=== PATIENT | male | born 1935 | race Caucasian/White ===

== ENCOUNTER → 2016-11-30 | Outpatient (CLI) | payer MEDICARE ==
[2016-11-30 09:23] LABS: HEMATOCRIT 38.6 % (39.0-51.0); MEAN CELL VOLUME 95.8 FL (80.0-100.0); MEAN CORPUSCULAR HEMOGLOBIN 31.4 PG (27.0-34.0); MEAN CORPUSCULAR HGB CONC 32.8 % (32.0-36.0); PLATELET COUNT 169 TH/MM3 (150-450); RED BLOOD COUNT 4.03 MIL/MM3 (4.50-5.90); RED CELL DISTRIBUTION WIDTH 13.1 % (11.6-17.2); REVIEW FLAG FINAL; WHITE BLOOD COUNT 6.5 TH/MM3 (4.0-11.0)
[2016-11-30 10:17] LABS: ALKALINE PHOSPHATASE 93 U/L (45-117); ALT (GPT) 20 U/L (12-78); ANION GAP 6 MEQ/L (5-15); AST (GOT) 19 U/L (15-37); BICARBONATE 30.1 MEQ/L (21.0-32.0); BLOOD UREA NITROGEN 20 MG/DL (7-18); CHLORIDE 107 MEQ/L (98-107); GLOMERULAR FILTRATION RATE 51 ML/MIN (>89); GLUCOSE,FASTING 101 MG/DL (74-99); POTASSIUM 4.5 MEQ/L (3.5-5.1); SODIUM (NA) 143 MEQ/L (136-145); TOTAL BILIRUBIN ADULT 0.7 MG/DL (0.2-1.0); TRANSFERRIN IRON PROFILE 256 MG/DL (200-360)
== END ==
LOC: PLAB 07:45
PROVIDERS: ATTEND Internal Medicine
DX: D64.9 Anemia, unspecified (principal); I10 Essential (primary) hypertension
CPT/HCPCS: 36415; 80053; 82607; 83540; 83550; 85027

== ENCOUNTER → 2017-05-27 | Outpatient (CLI) | payer MEDICARE ==
[2017-05-27 09:27] LABS: MEAN CELL VOLUME 96.3 FL (80.0-100.0); MEAN CORPUSCULAR HEMOGLOBIN 32.6 PG (27.0-34.0); MEAN CORPUSCULAR HGB CONC 33.9 % (32.0-36.0); PLATELET COUNT 160 TH/MM3 (150-450); RED BLOOD COUNT 3.95 MIL/MM3 (4.50-5.90); RED CELL DISTRIBUTION WIDTH 13.3 % (11.6-17.2); REVIEW FLAG FINAL; WHITE BLOOD COUNT 5.9 TH/MM3 (4.0-11.0)
[2017-05-27 09:51] LABS: ANION GAP 6 MEQ/L (5-15); AST (GOT) 22 U/L (15-37); BICARBONATE 29.3 MEQ/L (21.0-32.0); BLOOD UREA NITROGEN 24 MG/DL (7-18); CHLORIDE 105 MEQ/L (98-107); GLOMERULAR FILTRATION RATE 49 ML/MIN (>89); GLUCOSE,FASTING 96 MG/DL (74-99); POTASSIUM 4.4 MEQ/L (3.5-5.1); SODIUM (NA) 140 MEQ/L (136-145)
[2017-05-27 10:05] LABS: ALKALINE PHOSPHATASE 97 U/L (45-117); ALT (GPT) 24 U/L (12-78); HDL CHOLESTEROL 47.5 MG/DL (40.0-60.0); LDL CHOLESTEROL 70 MG/DL (0-99); LDL CHOLESTEROL DIRECT 82 MG/DL (0-99); TOTAL BILIRUBIN ADULT 0.6 MG/DL (0.2-1.0)
== END ==
LOC: PLAB 07:54
PROVIDERS: ATTEND Internal Medicine
DX: I10 Essential (primary) hypertension (principal); E78.5 Hyperlipidemia, unspecified
CPT/HCPCS: 36415; 80053; 80061; 83721; 85027

== ENCOUNTER → 2017-11-29 | Outpatient (CLI) | payer MEDICARE ==
[2017-11-29 10:26] LABS: HEMATOCRIT 38.6 % (39.0-51.0); MEAN CORPUSCULAR HEMOGLOBIN 32.3 PG (27.0-34.0); MEAN CORPUSCULAR HGB CONC 33.6 % (32.0-36.0); MEAN PLATELET VOLUME 9.2 FL (7.0-11.0); PLATELET COUNT 182 TH/MM3 (150-450); RED BLOOD COUNT 4.02 MIL/MM3 (4.50-5.90); RED CELL DISTRIBUTION WIDTH 13.1 % (11.6-17.2); WHITE BLOOD COUNT 6.1 TH/MM3 (4.0-11.0)
[2017-11-29 10:28] LABS: ALBUMIN 3.7 GM/DL (3.4-5.0); ALT (GPT) 25 U/L (12-78); AST (GOT) 28 U/L (15-37); BICARBONATE 26.2 MEQ/L (21.0-32.0); BLOOD UREA NITROGEN 23 MG/DL (7-18); CALCIUM 8.8 MG/DL (8.5-10.1); CHLORIDE 111 MEQ/L (98-107); CREATININE 1.28 MG/DL (0.60-1.30); GLOMERULAR FILTRATION RATE 54 ML/MIN (>89); GLUCOSE,FASTING 97 MG/DL (74-99); SODIUM (NA) 141 MEQ/L (136-145)
[2017-11-29 10:29] LABS: CHOLESTEROL 135 MG/DL (120-200); IRON (FE) 149 MCG/DL (65-175)
[2017-11-29 10:38] LABS: % SATURATION IRON PROFILE 46.9 % (20-50); ALKALINE PHOSPHATASE 93 U/L (45-117); CHOLESTEROL/ HDL RATIO 2.91 RATIO; HDL CHOLESTEROL 46.3 MG/DL (40.0-60.0); LDL CHOLESTEROL 77 MG/DL (0-99); LDL CHOLESTEROL DIRECT 92 MG/DL (0-99); TOTAL BILIRUBIN ADULT 0.9 MG/DL (0.2-1.0); TOTAL IRON BINDING CAPACITY 318 MCG/DL (250-450); TOTAL PROTEIN 7.2 GM/DL (6.4-8.2); TRIGLYCERIDES 60 MG/DL (42-150)
== END ==
LOC: PLAB 07:24
PROVIDERS: ATTEND Internal Medicine
DX: I25.10 Atherosclerotic heart disease of native coronary artery without angina pectoris (principal); D64.9 Anemia, unspecified
CPT/HCPCS: 36415; 80053; 80061; 83540; 83550; 83721; 85027

== ENCOUNTER 2018-03-23 10:10 | Observation (INO) ==
[2018-03-23] MEDS ORDERED: Metoprolol Inj 5 MG/5 ML Vial IV.PUSH STA ×2 (10:27→13:06)
--- NOTE | 2018-03-23 10:44 | XR ---
EXAM DATE: 03/23/2018 10:41 AM EDT AGE/SEX: 82 years / Male INDICATIONS: Rapid heart rate & chest pressure. CLINICAL DATA: This is the patient's initial encounter. Patient reports that signs and symptoms have been present for 1 day and indicates a pain score of 7/10. MEDICAL/SURGICAL HISTORY: Hypertension. Hypercholesterolemia. CAD. CABG. COMPARISON: No prior exams available for comparison. FINDINGS: A single AP view of the chest demonstrates the lungs to be symmetrically aerated without evidence of mass, infiltrate or effusion. The cardiomediastinal contours are unremarkable. There is evidence of previous cardiothoracic surgery. Osseous structures are intact. There are some old healed right-side d rib fractures. CONCLUSION: No acute intrathoracic disease. Electronically signed by: Cosmo Mosher MD 03/23/2018 10:42 AM EDT
[2018-03-23 10:52] LABS: Bilirubin,Urine Negative (Negative); Clarity,Urine Clear (Clear); Glucose,Urine (UA) Negative (Negative); Leukocyte Esterase,Urine Negative (Negative); Nitrite,Urine Negative (Negative); Specific Gravity,Urine Less/Equal 1.005 (1.002-1.035); Urobilinogen,Urine 0.2 mg/dL (Less than 2)
[2018-03-23 10:57] LABS: Baso # (Auto) 0.1 th/mm3 (0.0-0.2); Baso % (Auto) 0.8 % (0.0-2.0); Eos # (Auto) 0.2 th/mm3 (0.0-0.4); Eos % (Auto) 2.3 % (0.0-4.0); Hematocrit 39.5 % (39.0-51.0); Hemoglobin 13.3 gm/dL (13.0-17.0); Lymph # (Auto) 1.3 th/mm3 (1.0-4.8); Lymph % (Auto) 19.1 % (9.0-44.0); Mean Corpuscular HGB Conc 33.7 % (32.0-36.0); Mean Corpuscular Hemoglobin 33.1 pg (27.0-34.0); Mean Corpuscular Volume 98.1 fL (80.0-100.0); Mean Platelet Volume 8.4 fL (7.0-11.0); Mono # (Auto) 0.6 th/mm3 (0.0-0.9); Mono % (Auto) 8.5 % (0.0-8.0); Neut # (Auto) 4.5 th/mm3 (1.8-7.7); Neut % (Auto) 69.3 % (16.0-70.0); Platelet Count 181 th/mm3 (150-450); Red Blood Count 4.03 mil/mm3 (4.50-5.90); Red Cell Distribution Width 12.7 % (11.6-17.2); White Blood Count 6.7 th/mm3 (4.0-11.0)
[2018-03-23 11:01] LABS: Chloride 108 meq/L (98-107); Potassium 4.1 meq/L (3.5-5.1); Sodium 144 meq/L (136-145)
[2018-03-23 11:04] LABS: Color,Urine Straw (Yellw/Straw)
[2018-03-23 11:06] LABS: Albumin 3.4 g/dL (3.4-5.0); Lipase 97 U/L (73-393)
[2018-03-23 11:07] LABS: Anion Gap 9 meq/L (5-15); Blood Urea Nitrogen 23 mg/dL (7-18); Carbon Dioxide 26.6 meq/L (21.0-32.0); Glucose,Random 137 mg/dL (74-106); Magnesium 1.8 mg/dL (1.5-2.5)
[2018-03-23 11:08] LABS: Activated Partial Thrombo Time 25.7 sec (24.3-30.1); INR 1.1 Ratio; Prothrombin Time 10.8 sec (9.8-11.6)
[2018-03-23 11:09] LABS: Alanine Aminotransferase 25 U/L (12-78); Aspartate Aminotransferase 24 U/L (15-37); Glomerular Filtration Rate 53 mL/min (>89)
[2018-03-23 11:11] LABS: Total Protein 7.2 g/dL (6.4-8.2)
[2018-03-23 11:12] LABS: Alkaline Phosphatase 104 U/L (45-117)
[2018-03-23 11:15] LABS: Creatine Kinase 78 U/L (39-308); D-Dimer 1.38 mg/L FEU (0.00-0.50)
--- NOTE | 2018-03-23 12:16 | ED ---
HPI General Chief complaint: Arrhythmia/Palpitations Stated complaint: High Heart Rate Time Seen by Provider: 03/23/18 10:22 History of Present Illness HPI narrative: 82-year-old male history of hypertension, dyslipidemia, VANESSA here for evaluation of palpitations. Patient says he was eating his coburn egg and cheese sandwich this morning, went to the yard and he started feeling palpitations. He has no chest pain to do some work or shortness of breath or cough or sweating, denies any neurological symptoms or slurred speech or weakness or sensory loss. He does not have any history of A. fib never had these symptoms before. Related Data Home Medications Medication Instructions Recorded Confirmed amlodipine 2.5 mg PO DAILY 03/23/18 03/23/18 ascorbic acid (vitamin C) [Vitamin 2 g PO DAILY 03/23/18 03/23/18 C] aspirin 1 tab PO HS 03/23/18 03/23/18 atorvastatin [Lipitor] 40 mg PO HS 03/23/18 03/23/18 cholecalciferol (vitamin D3) 2,000 unit PO DAILY 03/23/18 03/23/18 [Vitamin D3] diphenhydramine HCl 25 mg PO HS PRN 03/23/18 03/23/18 glucosamine sulfate [Glucosamine] 1,500 mg PO DAILY 03/23/18 03/23/18 lisinopril 1 tab PO DAILY 03/23/18 03/23/18 multivitamin 1 tab PO DAILY 03/23/18 03/23/18 Allergies Allergy/AdvReac Type Severity Reaction Status Date / Time morphine AdvReac Gastrointestinal Verified 03/23/18 10:21 Upset Review of Systems Except as stated in HPI: all other systems reviewed are negative [facility] Family History Family History Other Brain aneurysm Social History Social History Substance History: No History of Abuse Second Hand Smoke Exposure: Yes Smoking Status: Never smoker How Often Do You Have a Drink Containing Alcohol: Never Recent Out of Country Travel within the Last 8 Weeks: No Immunization History Tetanus Immunization: Unsure Hx Influenza Vaccine This Season: No Exam Narrative Exam Narrative: GENERAL: Alert oriented 3 no acute distress. SKIN: Focused skin assessment warm/dry. HEAD: Atraumatic. Normocephalic. EYES: Pupils equal and round. No scleral icterus. No injection or drainage. ENT: No nasal bleeding or discharge. Mucous membranes pink and moist. NECK: Trachea midline. No JVD. CARDIOVASCULAR: Regular rate and rhythm. No murmur appreciated. RESPIRATORY: No accessory muscle use. Clear to auscultation. Breath sounds equal bilaterally. GASTROINTESTINAL: Abdomen soft, non-tender, nondistended. Hepatic and splenic margins not palpable. MUSCULOSKELETAL: No obvious deformities. No clubbing. No cyanosis. No edema. NEUROLOGICAL: Awake and alert. No obvious cranial nerve deficits. Motor grossly within normal limits. Normal speech. PSYCHIATRIC: Appropriate mood and affect; insight and judgment normal. Course Initial Documented Vital Signs Temperature 98 F 03/23/18 10:35 Pulse Rate 140 H 03/23/18 10:35 Respiratory Rate 18 03/23/18 10:35 Blood Pressure 180/108 H 03/23/18 10:35 Pulse Oximetry 95 03/23/18 10:35 Last Documented Vital Signs Temperature 98 F 03/23/18 10:35 Pulse Rate 53 L 03/23/18 13:16 Respiratory Rate 20 03/23/18 12:47 Blood Pressure 157/78 H 03/23/18 13:16 Pulse Oximetry 97 03/23/18 13:16 Medical Decision Making Lab Data Result diagrams: 03/23/18 10:20 03/23/18 10:20 Lab Results 03/23/18 03/23/18 03/23/18 Range/Units 10:20 10:20 10:20 CBC w Diff WBC (4.0-11.0) th/mm3 RBC (4.50-5.90) mil/mm3 Hgb (13.0-17.0) gm/dL Hct (39.0-51.0) % MCV (80.0-100.0) fL MCH (27.0-34.0) pg MCHC (32.0-36.0) % RDW (11.6-17.2) % Plt Count (150-450) th/mm3 MPV (7.0-11.0) fL Neut % (Auto) (16.0-70.0) % Lymph % (Auto) (9.0-44.0) % Archer % (Auto) (0.0-8.0) % Eos % (Auto) (0.0-4.0) % Baso % (Auto) (0.0-2.0) % Neut # (Auto) (1.8-7.7) th/mm3 Lymph # (Auto) (1.0-4.8) th/mm3 Archer # (Auto) (0.0-0.9) th/mm3 Eos # (Auto) (0.0-0.4) th/mm3 Baso # (Auto) (0.0-0.2) th/mm3 WBC Differential Differential Comment PT 10.8 (9.8-11.6) sec INR 1.1 Ratio APTT 25.7 (24.3-30.1) sec D-Dimer Quant (PE/DVT) 1.38 H (0.00-0.50) mg/L FEU Sodium (136-145) meq/L Potassium (3.5-5.1) meq/L Chloride (98-107) meq/L Carbon Dioxide (21.0-32.0) meq/L Anion Gap (5-15) meq/L BUN (7-18) mg/dL Creatinine (0.60-1.30) mg/dL Estimated GFR (>89) mL/min Random Glucose (74-106) mg/dL Calcium (8.5-10.1) mg/dL Magnesium (1.5-2.5) mg/dL Total Bilirubin (0.2-1.0) mg/dL AST (15-37) U/L ALT (12-78) U/L Alkaline Phosphatase (45-117) U/L Total Creatine Kinase (39-308) U/L Troponin I (0.02-0.05) ng/mL B-Natriuretic Peptide 146 H (0-100) pg/mL Total Protein (6.4-8.2) g/dL Albumin (3.4-5.0) g/dL Lipase Cancelled Ur Collection Type Urine Color (Yellw/Straw) Urine Clarity (Clear) Urine pH (5.0-8.5) Ur Specific [place] (1.002-1.035) Urine Protein (Neg-Trace) mg/dL Urine Glucose (UA) (Negative) mg/dL Urine Ketones (Negative) mg/dL Urine Occult Blood (Negative) Urine Nitrate (Negative) Urine Bilirubin (Negative) Urine Urobilinogen (Less than 2) mg/dL Ur Leukocyte Esterase (Negative) Micro UA Comment Urine Culture Comments 08/02/18 08/02/18 08/02/18 Range/Units 10:20 10:20 10:20 CBC w Diff Auto diff final WBC 6.7 (4.0-11.0) th/mm3 RBC 4.03 L (4.50-5.90) mil/mm3 Hgb 13.3 (13.0-17.0) gm/dL Hct 39.5 (39.0-51.0) % MCV 98.1 (80.0-100.0) fL MCH 33.1 (27.0-34.0) pg MCHC 33.7 (32.0-36.0) % RDW 12.7 (11.6-17.2) % Plt Count 181 (150-450) th/mm3 MPV 8.4 (7.0-11.0) fL Neut % (Auto) 69.3 (16.0-70.0) % Lymph % (Auto) 19.1 (9.0-44.0) % Archer % (Auto) 8.5 H (0.0-8.0) % Eos % (Auto) 2.3 (0.0-4.0) % Baso % (Auto) 0.8 (0.0-2.0) % Neut # (Auto) 4.5 (1.8-7.7) th/mm3 Lymph # (Auto) 1.3 (1.0-4.8) th/mm3 Archer # (Auto) 0.6 (0.0-0.9) th/mm3 Eos # (Auto) 0.2 (0.0-0.4) th/mm3 Baso # (Auto) 0.1 (0.0-0.2) th/mm3 WBC Differential . Differential Comment . PT Cancelled (9.8-11.6) sec INR Cancelled Ratio APTT Cancelled (24.3-30.1) sec D-Dimer Quant (PE/DVT) (0.00-0.50) mg/L FEU Sodium 144 (136-145) meq/L Potassium 4.1 (3.5-5.1) meq/L Chloride 108 H (98-107) meq/L Carbon Dioxide 26.6 (21.0-32.0) meq/L Anion Gap 9 (5-15) meq/L BUN 23 H (7-18) mg/dL Creatinine 1.30 (0.60-1.30) mg/dL Estimated GFR 53 L (>89) mL/min Random Glucose 137 H (74-106) mg/dL Calcium 9.0 (8.5-10.1) mg/dL Magnesium 1.8 (1.5-2.5) mg/dL Total Bilirubin 0.7 (0.2-1.0) mg/dL AST 24 (15-37) U/L ALT 25 (12-78) U/L Alkaline Phosphatase 104 (45-117) U/L Total Creatine Kinase 78 (39-308) U/L Troponin I Less than 0.02 L (0.02-0.05) ng/mL B-Natriuretic Peptide (0-100) pg/mL Total Protein 7.2 (6.4-8.2) g/dL Albumin 3.4 (3.4-5.0) g/dL Lipase 97 Ur Collection Type Urine Color (Yellw/Straw) Urine Clarity (Clear) Urine pH (5.0-8.5) Ur Specific [place] (1.002-1.035) Urine Protein (Neg-Trace) mg/dL Urine Glucose (UA) (Negative) mg/dL Urine Ketones (Negative) mg/dL Urine Occult Blood (Negative) Urine Nitrate (Negative) Urine Bilirubin (Negative) Urine Urobilinogen (Less than 2) mg/dL Ur Leukocyte Esterase (Negative) Micro UA Comment Urine Culture Comments 03/23/18 Range/Units 10:30 CBC w Diff WBC (4.0-11.0) th/mm3 RBC (4.50-5.90) mil/mm3 Hgb (13.0-17.0) gm/dL Hct (39.0-51.0) % MCV (80.0-100.0) fL MCH (27.0-34.0) pg MCHC (32.0-36.0) % RDW (11.6-17.2) % Plt Count (150-450) th/mm3 MPV (7.0-11.0) fL Neut % (Auto) (16.0-70.0) % Lymph % (Auto) (9.0-44.0) % Archer % (Auto) (0.0-8.0) % Eos % (Auto) (0.0-4.0) % Baso % (Auto) (0.0-2.0) % Neut # (Auto) (1.8-7.7) th/mm3 Lymph # (Auto) (1.0-4.8) th/mm3 Archer # (Auto) (0.0-0.9) th/mm3 Eos # (Auto) (0.0-0.4) th/mm3 Baso # (Auto) (0.0-0.2) th/mm3 WBC Differential Differential Comment PT (9.8-11.6) sec INR Ratio APTT (24.3-30.1) sec D-Dimer Quant (PE/DVT) (0.00-0.50) mg/L FEU Sodium (136-145) meq/L Potassium (3.5-5.1) meq/L Chloride (98-107) meq/L Carbon Dioxide (21.0-32.0) meq/L Anion Gap (5-15) meq/L BUN (7-18) mg/dL Creatinine (0.60-1.30) mg/dL Estimated GFR (>89) mL/min Random Glucose (74-106) mg/dL Calcium (8.5-10.1) mg/dL Magnesium (1.5-2.5) mg/dL Total Bilirubin (0.2-1.0) mg/dL AST (15-37) U/L ALT (12-78) U/L Alkaline Phosphatase (45-117) U/L Total Creatine Kinase (39-308) U/L Troponin I (0.02-0.05) ng/mL B-Natriuretic Peptide (0-100) pg/mL Total Protein (6.4-8.2) g/dL Albumin (3.4-5.0) g/dL Lipase Ur Collection Type Clean catch Urine Color Straw (Yellw/Straw) Urine Clarity Clear (Clear) Urine pH 7.0 (5.0-8.5) Ur Specific [place] Less/equal 1.005 (1.002-1.035) Urine Protein Negative (Neg-Trace) mg/dL Urine Glucose (UA) Negative (Negative) mg/dL Urine Ketones Negative (Negative) mg/dL Urine Occult Blood Negative (Negative) Urine Nitrate Negative (Negative) Urine Bilirubin Negative (Negative) Urine Urobilinogen 0.2 (Less than 2) mg/dL Ur Leukocyte Esterase Negative (Negative) Micro UA Comment Culture not ind Urine Culture Comments Culture not ind Imaging Data Radiologist's impression: Chest X-Ray 03/23/18 10:28 CONCLUSION: No acute intrathoracic disease. Chest CTA 03/23/18 11:24 CONCLUSION: No evidence of pulmonary embolism. Discharge Plan Discharge Disposition Patient Disposition: 30 Still Patient Discharge Condition Condition: Stable Discharge Details Diagnosis: Afib Physicians Team ED Provider: Loki Rice Primary Care Provider: Arjun Bacon Attending Provider: Taylor Pierre Discharge Interventions Interventions: Vital Signs Last Done: 03/23/18 13:16 Status ED Status: Admitted Observation Patient
--- NOTE | 2018-03-23 12:58 | CT ---
EXAM DATE: 03/23/2018 12:37 PM EDT AGE/SEX: 82 years / Male INDICATIONS: Chest pressure. Elevated heart rate. CLINICAL DATA: This is the patient's initial encounter. Patient reports that signs and symptoms have been present for 1 day and indicates a pain score of 2/10. MEDICAL/SURGICAL HISTORY: Cardiovascular disease. Hypertension. CABG. RADIATION DOSE: 17.69 CTDI (mGy) COMPARISON: No prior exams available for comparison. TECHNIQUE: Volumetric scanning was performed using a multi-row detector CT scanner during bolus infu jomar of 75 ml Omnipaque 350 (iohexol) nonionic water-soluble contrast as a single exam dose. The lacy a was post processed with a variety of visualization algorithms including full volume maximum intensi ty projection and sliding thin slab reformation. Using automated exposure control and adjustment of the mA and/or kV according to patient size, radiation dose was kept as low as reasonably achievable t o obtain optimal diagnostic quality images. DICOM format image data is available electronically for review and comparison. FINDINGS: Examination of the pulmonary vasculature demonstrates good filling of the main, lobar and segmental b ranches. There are no filling defects to suggest pulmonary embolism. Multiplanar reconstructions are also unremarkable. There is minimal atelectasis in both bases with small bulla in the left lower lobe. No pulmonary nodu les are identified. No pleural effusions are identified. Examination of the mediastinum demonstrates no abnormally enlarged lymph nodes by CT criteria. No axi llary or hilar abnormalities are identified. Coronary artery calcifications are present. The visualiz ed upper abdominal structures are unremarkable. CONCLUSION: No evidence of pulmonary embolism. Electronically signed by: Sai Bello MD 03/23/2018 12:57 PM EDT
--- NOTE | 2018-03-23 14:42 | P.HPIM ---
History of Present Illness Primary Care Physician: Arjun Bacon MD Chief Complaint: Palpitation History of Present Illness: Patient is an 82-year-old gentleman with acute onset of palpitations today while at rest. He was doing yard work earlier and sat down and ate his breakfast and then found out that he had some palpitations in his chest. His urged him to come to the hospital as she had recently been discharged from. In arrival here patient is found to have atrial fibrillation on telemetry with a rapid ventricular response and a heart rate in the 140s. He was given Lopressor IV and has since converted back to sinus bradycardia which he says is his normal baseline. 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 Patient at this time takes a baby aspirin a day and is very active with softball weekly. He notes no recent fevers or chills and has not had any recent trauma. Of note the patient plays softball 3 times a week and his team recently won the senior softball championship of the [facility]. Only recent stress he has had is his being in the hospital but she has since come home. Due to the acute nature of his A. fib patient is recommended for further observation on telemetry - Diagnosis (1) Afib (2) CAD (coronary artery disease) Review of Systems All other systems reviewed negative except as stated in HPI PMFSH - History History Provided By: Patient - Medical History Medical History: Medical History (Last Reviewed 03/23/18 @ 14:40 by Taylor Pierre MD) CPAP use counseling Coronary artery disease High cholesterol Hypertension - Surgical History Surgical History: Surgical History (Last Reviewed 03/23/18 @ 14:40 by Taylor Pierre MD) History of bilateral knee replacement History of shoulder surgery Hx of CABG - Family History Family History: Family History (Last Updated 03/23/18 @ 14:40 by Taylor Pierre MD) Other Brain aneurysm - Tobacco History Smoking Status: Never smoker - Alcohol History How Often Do You Have a Drink Containing Alcohol: Never - Substance Use History Substance History: No History of Abuse - Travel History Recent Travel Out of the Country Within the Last 8 Weeks: No - Immunization History Tetanus Immunization: Unsure Hx Influenza Vaccine This Season: No Medications and Allergies Allergies Allergy/AdvReac Type Severity Reaction Status Date / Time morphine AdvReac Gastrointestinal Verified 03/23/18 10:21 Upset Home Medications Medication Instructions Recorded Confirmed Type amlodipine 2.5 mg PO DAILY 03/23/18 03/23/18 History ascorbic acid (vitamin C) [Vitamin 2 g PO DAILY 03/23/18 03/23/18 History C] aspirin 1 tab PO HS 03/23/18 03/23/18 History atorvastatin [Lipitor] 40 mg PO HS 03/23/18 03/23/18 History cholecalciferol (vitamin D3) 2,000 unit PO DAILY 03/23/18 03/23/18 History [Vitamin D3] diphenhydramine HCl 25 mg PO HS PRN 03/23/18 03/23/18 History glucosamine sulfate [Glucosamine] 1,500 mg PO DAILY 03/23/18 03/23/18 History lisinopril 1 tab PO DAILY 03/23/18 03/23/18 History multivitamin 1 tab PO DAILY 03/23/18 03/23/18 History Exam Vital signs: Vital Signs 03/23/18 10:35 03/23/18 10:36 03/23/18 10:49 Temperature 98 F Pulse Rate 140 H Respiratory Rate 18 Blood Pressure 180/108 H 157/99 H 157/79 H Pulse Oximetry 95 03/23/18 11:08 03/23/18 11:39 03/23/18 12:08 Temperature Pulse Rate 99 H 122 H 97 H Respiratory Rate 18 8 L 18 Blood Pressure 105/72 141/77 H 126/82 Pulse Oximetry 95 97 97 03/23/18 12:47 03/23/18 13:16 Temperature Pulse Rate 120 H 53 L Respiratory Rate 20 Blood Pressure 152/100 H 157/78 H Pulse Oximetry 98 97 Intake & Output 03/22/18 03/23/18 03/23/18 18:59 06:59 18:59 Output Total 1100 / 1100 Balance -1100 / -1100 Weight 83 kg Output: Urine 1100 / 1100 Narrative: GENERAL: Well-nourished, well-developed patient. SKIN: Warm and dry. HEAD: Normocephalic. EYES: No scleral icterus. No injection or drainage. NECK: Supple, trachea midline. No JVD or lymphadenopathy. CARDIOVASCULAR: Sinus bradycardia without murmurs, gallops, or rubs. RESPIRATORY: Breath sounds equal bilaterally. No accessory muscle use. GASTROINTESTINAL: Abdomen soft, non-tender, nondistended. MUSCULOSKELETAL: No cyanosis, or edema. BACK: Nontender without obvious deformity. No CVA tenderness. NEUROLOGICAL: Awake and alert. Cranial nerves II through XII intact. Motor and sensory grossly within normal limits. Five out of 5 muscle strength in all muscle groups. Normal speech. Results - Labs CBC & Chem 7: 03/23/18 10:20 03/23/18 10:20 Labs: Short CBC 03/23/18 Range/Units 10:20 WBC 6.7 (4.0-11.0) th/mm3 Hgb 13.3 (13.0-17.0) gm/dL Hct 39.5 (39.0-51.0) % Plt Count 181 (150-450) th/mm3 BMP 03/23/18 10:20 Sodium 144 Potassium 4.1 Chloride 108 H Carbon Dioxide 26.6 BUN 23 H Creatinine 1.30 Calcium 9.0 Cardiac Enzymes 03/23/18 Range/Units 10:20 Total Creatine Kinase 78 (39-308) U/L Troponin I Less than 0.02 L (0.02-0.05) ng/mL Liver Function 03/23/18 Range/Units 10:20 Total Bilirubin 0.7 (0.2-1.0) mg/dL AST 24 (15-37) U/L ALT 25 (12-78) U/L Alkaline Phosphatase 104 (45-117) U/L Albumin 3.4 (3.4-5.0) g/dL Urine 03/23/18 Range/Units 10:30 Urine Color Straw (Yellw/Straw) Urine Clarity Clear (Clear) Urine pH 7.0 (5.0-8.5) Ur Specific [place] Less/equal 1.005 (1.002-1.035) Urine Protein Negative (Neg-Trace) mg/dL Urine Glucose (UA) Negative (Negative) mg/dL - Imaging Impressions Chest X-Ray 03/23/18 10:28 CONCLUSION: No acute intrathoracic disease. Chest CTA 03/23/18 11:24 CONCLUSION: No evidence of pulmonary embolism. Caprini VTE Risk Assessment Caprini VTE Risk Assessment: Moderate/High Risk (score >= 2) Caprini Risk Assessment Model: Point Value = 1 Point Value = 2 Point Value = 3 Point Value = 5 Age 41-60 Minor surgery BMI > 25 kg/m2 Swollen legs Varicose veins or History of unexplained or recurrent spontaneous Oral contraceptives or hormone replacement Sepsis (< 1 month) Serious lung disease, including pneumonia (< 1 month) Abnormal pulmonary function Acute myocardial infarction Congestive heart failure (< 1 month) History of inflammatory bowel disease Medical patient at bed rest Age 61-74 Arthroscopic surgery Major open surgery (> 45 min) Laparoscopic surgery (> 45 min) Malignancy Confined to bed (> 72 hours) Immobilizing plaster cast Central venous access Age >= 75 History of VTE Family history of VTE Factor V Leiden Prothrombin [id number] Lupus anticoagulant Anticardiolipin antibodies Elevated serum homocysteine Heparin-induced thrombocytopenia Other congenital or acquired thrombophilia Stroke (< 1 month) Elective arthroplasty Hip, pelvis, or leg fracture Acute spinal cord injury (< 1 month) Prophylaxis Regimen: Total Risk Factor Score Risk Level Prophylaxis Regimen 0-1 Low Early ambulation 2 Moderate Order ONE of the following: *Sequential Compression Device (SCD) *Heparin 5000 units SQ BID 3-4 Higher Order ONE of the following medications: *Heparin 5000 units SQ TID *Enoxaparin/Lovenox 40 mg SQ daily (WT < 150 kg, CrCl > 30 mL/min) *Enoxaparin/Lovenox 30 mg SQ daily (WT < 150 kg, CrCl > 10-29 mL/min) *Enoxaparin/Lovenox 30 mg SQ BID (WT < 150 kg, CrCl > 30 mL/min) AND/OR *Sequential Compression Device (SCD) 5 or more Highest Order ONE of the following medications: *Heparin 5000 units SQ TID (Preferred with Epidurals) *Enoxaparin/Lovenox 40 mg SQ daily (WT < 150 kg, CrCl > 30 mL/min) *Enoxaparin/Lovenox 30 mg SQ daily (WT < 150 kg, CrCl > 10-29 mL/min) *Enoxaparin/Lovenox 30 mg SQ BID (WT < 150 kg, CrCl > 30 mL/min) AND *Sequential Compression Device (SCD) Assessment and Plan - Assessment (1) Afib Code(s): I48.91 - Unspecified atrial fibrillation Status: Acute Plan: Currently resolved after Lopressor We will continue Lopressor discontinued patient's amlodipine Increase aspirin 325 mg daily and follow-up echocardiogram in a.m. Monitor on telemetry This point patient appears to have converted and will likely not need anticoagulation We will need outpatient referral to cardiology (2) CAD (coronary artery disease) Code(s): I25.10 - Atherosclerotic heart disease of [place] coronary artery without angina pectoris Status: Acute Plan: Patient does take aspirin 81 mg daily as well as Lipitor and lisinopril We will add a beta-joann given his new A. fib and follow-up cardiac enzymes - Plan Code Status: full code Discussed Condition With: ER MD, patient Discharge Planning: likely in am pending maintenance of sinus rhythm
--- NOTE | 2018-03-23 15:38 | ECG ---
Date Performed: 03/23/2018 Time Performed: 10:17:21 PTAGE: 82 years EKG: ATRIAL FIBRILLATION WITH RAPID VENTRICULAR RESPONSE SEPTAL MYOCARDIAL INFARCTION When mary red to previous tracing, atrial fibrillation is new. Clinical correlation is recommended ABNORMAL ECG PREVIOUS TRACING : 07/09/2003 09.47 DOCTOR: Supa Vora Interpretating Date/Time 03/23/2018 15:38:05
[2018-03-23 16:02] LABS: Creatine Kinase 74 U/L (39-308)
[2018-03-23] MEDS: Aspirin 325 MG Tablet PO SCH (17:11)
[2018-03-23 20:26] VITALS: RESP 18
[2018-03-23 21:47] LABS: Creatine Kinase 64 U/L (39-308)
[2018-03-23] MEDS: Metoprolol Tartrate 25 MG Tablet PO SCH (23:45)
[2018-03-24 05:25] LABS: T4 (Thyroxine) 8.3 mcg/dL (4.5-12.1)
[2018-03-24] MEDS: Metoprolol Tartrate 25 MG Tablet PO SCH (08:48)
[2018-03-24] MEDS: Aspirin 325 MG Tablet PO SCH (08:48)
--- NOTE | 2018-03-24 08:55 | ECG ---
Date Performed: 03/23/2018 Time Performed: 13:24:17 PTAGE: 82 years EKG: SINUS BRADYCARDIA BORDERLINE ECG INTERPRETATION BASED ON A DEFAULT AGE OF 90 YEARS PREVIOUS TRACING : 03/23/2018 10.17 Compared to previous tracing, sinus bradycardia has r eplaced atrial fibrillation, heart rate has slowed. DOCTOR: Gray Nick Interpretating Date/Time 03/24/2018 08:53:56
[2018-03-24] MEDS ORDERED: Lisinopril 20 MG Tablet PO SCH (09:00)
[2018-03-24 09:14] VITALS: PULSE 54
--- NOTE | 2018-03-24 11:52 | ECHRPT ---
Indication: ATRIAL FIB/FLUTTER CONCLUSIONS Mildly dilated left ventricle. Mild concentric left ventricular hypertrophy. The left ventricular systolic function is low normal with an estimated ejection fraction in the rang e of 50- 55%. The left atrial size is mildly dilated. The right atrial size is mildly dilated. [id number] mitral valve regurgitation. There is trace tricuspid valve regurgitation. The estimated pulmonary arterial pressure is 38.1 mmHg. Trivial pulmonary valve regurgitation. BP: / HR: Rhythm: Sinus MEASUREMENTS (Male / Female) Normal Values Technical Quality:Fair 2D ECHO LV Diastolic Diameter PLAX 6.3 cm 4.2 - 5.9 / 3.9 - 5.3 cm LV Systolic Diameter PLAX 4.9 cm IVS Diastolic Thickness 1.1 cm 0.6 - 1.0 / 0.6 - 0.9 cm LVPW Diastolic Thickness 0.9 cm 0.6 - 1.0 / 0.6 - 0.9 cm LV Relative Wall Thickness 0.3 RV Internal Dim ED PLAX 3.2 cm LVOT Diameter 2.3 cm Aortic Root Diameter 3.2 cm LA Systolic Diameter LX 4.6 cm 3.0 - 4.0 / 2.7 - 3.8 cm M-MODE AV Cusp Separation MM 1.8 cm DOPPLER AV Peak Velocity 161.0 cm/s AV Peak Gradient 10.4 mmHg AV Mean Gradient 6.0 mmHg AV Velocity Time Integral 36.6 cm LVOT Peak Velocity 68.4 cm/s LVOT Peak Gradient 1.9 mmHg LVOT Velocity Time Integral 16.8 cm AV Area Cont Eq vti 1.9 cm AV Area Cont Eq pk 1.8 cm Mitral E Point Velocity 41.5 cm/s Mitral A Point Velocity 81.4 cm/s Mitral E to A Ratio 0.5 LV E' Lateral Velocity 7.9 cm/s Mitral E to LV E' Lateral Ratio 5.3 LV E' Septal Velocity 3.8 cm/s Mitral E to LV E' Septal Ratio 10.9 TR Peak Velocity 265.0 cm/s TR Peak Gradient 28.1 mmHg Right Atrial Pressure 10.0 mmHg Pulmonary Artery Systolic Pressu 38.1 mmHg Right Ventricular Systolic Press 38.1 mmHg PV Peak Velocity 69.9 cm/s PV Peak Gradient 2.0 mmHg FINDINGS LEFT VENTRICLE Mildly dilated left ventricle. Mild concentric left ventricular hypertrophy. The left ventricular systolic function is low normal with an estimated ejection fraction in the rang e of 50- 55%. RIGHT VENTRICLE Normal right ventricular size and systolic function. LEFT ATRIUM The left atrial size is mildly dilated. RIGHT ATRIUM The right atrial size is mildly dilated. ATRIAL SEPTUM The interatrial septum not well visualized. AORTA The aortic root and proximal ascending aorta are normal in size on limited imaging. MITRAL VALVE Atsmo-sg-dmoi mitral valve regurgitation. AORTIC VALVE Trileaflet aortic valve. No aortic valve stenosis or regurgitation. TRICUSPID VALVE There is trace tricuspid valve regurgitation. The estimated pulmonary arterial pressure is 38.1 mmHg. PULMONARY VALVE Trivial pulmonary valve regurgitation. VESSELS The inferior vena cava was not well visualized. PERICARDIUM No pericardial effusion. Hero Maki MD, FACC, FSCAI (Electronically Signed) Final Date:24 March 2018 11:51
--- NOTE | 2018-03-24 12:46 | P.PNIM ---
Subjective Interval history: Bradycardic, unable to use bb. He denies chest pain. States he is feeling well. BP labile Physical Exam Vital signs: Vital Signs 03/23/18 12:47 03/23/18 13:16 03/23/18 16:17 Temperature Pulse Rate 120 H 53 L 50 L Respiratory Rate 20 Blood Pressure 152/100 H 157/78 H Pulse Oximetry 98 97 03/23/18 18:10 03/23/18 20:00 03/23/18 20:22 Temperature 97.5 F L 98.0 F Pulse Rate 54 L 45 L Respiratory Rate 16 18 Blood Pressure 140/84 154/69 H Pulse Oximetry 97 94 L 94 L 03/24/18 00:00 03/24/18 03:33 03/24/18 04:00 Temperature 97.4 F L 98.0 F Pulse Rate 50 L 43 L 53 L Respiratory Rate 18 18 Blood Pressure 146/68 H 140/88 Pulse Oximetry 96 96 03/24/18 08:00 Temperature 97.6 F Pulse Rate 54 L Respiratory Rate 18 Blood Pressure 181/89 H Pulse Oximetry 96 Intake & Output 03/23/18 03/24/18 03/24/18 18:59 06:59 18:59 Output Total 1100 / 1100 Balance -1100 / -1100 Weight 83 kg 90.8 kg Output: Urine 1100 / 1100 Narrative: GENERAL: This is a well-nourished, well-developed patient, in no apparent distress. CARDIOVASCULAR: Rate in the low 50s and irregular rhythm without murmurs, gallops, or rubs. RESPIRATORY: Good respiratory efforts. Breath sounds equal and clear to auscultation bilaterally. GASTROINTESTINAL: Abdomen soft, non-tender, non-distended. Normal active bowel sounds MUSCULOSKELETAL: Extremities without cyanosis, or edema. NEURO: Alert & Oriented x4 to person, place, time, situation. Moves all ext x4 PSYCH: Appropriate mood and affect. Results - Labs CBC & Chem 7: 03/23/18 10:20 03/23/18 10:20 Laboratory Results - last 24 hr 03/23/18 03/23/18 03/23/18 15:28 15:28 20:58 Total Creatine Kinase 74 64 Troponin I Less than 0.02 L Less than 0.02 L TSH 1.270 Thyroxine (T4) 8.3 - Imaging Impressions Chest CTA 03/23/18 11:24 CONCLUSION: No evidence of pulmonary embolism. Assessment and Plan - Assessment (1) Afib Code(s): I48.91 - Unspecified atrial fibrillation Status: Acute Plan: Patient is bradycardic since he received IV Lopressor last night. Has not been able to use PO Lopressor since last night due to bradycardia. BP labile. Consult Cardiology for assistance. Suspect rate control may be an issue once he is active. [id number] score of 3. He would benefit from anticoagulation. (2) CAD (coronary artery disease) Code(s): I25.10 - Atherosclerotic heart disease of [place] coronary artery without angina pectoris Status: Acute Plan: Patient does take aspirin 81 mg daily as well as Lipitor and lisinopril Unable to tolerate BB currently due to bradycardia. Asymptomatic. (3) Uncontrolled hypertension Code(s): I10 - Essential (primary) hypertension Status: Acute Plan: BP labile Continue Lisinopril. Amlodipine on hold.
--- NOTE | 2018-03-24 18:35 | MB ---
cc: Hero Maki MD DATE: 03/24/2018 HISTORY OF PRESENT ILLNESS: David is a very pleasant 82-year-old gentleman with history of coronary artery disease, status post CABG, history of hyperlipidemia, hypertension, bilateral knee replacement, and shoulder surgery, who was out doing yard work today, developed palpitations, checked his heart rate, which was in the 130s. He went to the [facility] emergency room, was found to be in atrial fibrillation with rapid ventricular response, currently asymptomatic. Denies any chest pain, fever, chills, cough, GI or bleeding, PND or orthopnea, syncope or dizziness. ALLERGIES: MORPHINE. SOCIAL HISTORY: Never smoked. Never drank alcohol. CURRENT MEDICATIONS: 1. Aspirin 325 daily. 2. Atorvastatin 40 mg at bedtime. 3. Lisinopril 40 mg daily. 4. Lopressor 12.5 b.i.d. PHYSICAL EXAMINATION: VITAL SIGNS: Pulse 54, temperature 97.4, blood pressure 140/66, respiratory rate of 18. GENERAL: He is alert and oriented x 3, in no acute distress. NECK: Supple. No JVD. No bruit. CARDIOVASCULAR: S1, S2. No murmurs, rubs or gallops. LUNGS: Clear to auscultation bilaterally. ABDOMEN: Soft, nontender, and nondistended with positive bowel sounds. EXTREMITIES: No lower extremity edema. DIAGNOSTIC STUDIES: EKG on arrival shows AFib at a rate of 134 beats per minute. No ST-T wave changes. Repeat EKG shows sinus bradycardia, otherwise normal. Chest x-ray: No acute intrathoracic disease. Chest CTA: No evidence of pulmonary embolism. Echocardiogram: EF 50-55%. PA pressure 38 mmHg. Trace to mild MR. Labs; white count 6.7, hemoglobin 13.3, hematocrit 39.5, platelet count 181. INR 1.1. Sodium 144, potassium 4.1, chloride 108, bicarbonate 26.6, BUN 23, creatinine 1.30. Troponin less than 0.02 x 3. BNP is 146. DIAGNOSES: 1. Paroxysmal atrial fibrillation. 2. Atrial fibrillation with rapid ventricular response. 3. Coronary artery disease. 4. Hyperglycemia. 5. Heart failure. DISCUSSION: The patient's CHADS-VASc score is 4. Therefore, I have advised him to take Coumadin, Pradaxa, Xarelto, or Eliquis to lower his risk of stroke. He understands. He is undecided right now. If he chooses to go on Xarelto, Eliquis or Pradaxa, I do think he could be discharged tonight. If he chooses to go on Coumadin, he will need to be started on Coumadin with an INR of 2.0 prior to discharge. I also advised him to follow up with me in the office. MD CONSUELO Manzano/VARUN , 06:16 PM , 06:22 PM
[2018-03-24] MEDS ORDERED: Rivaroxaban 20 MG Tablet PO ONE (20:00)
[2018-03-28 18:04] VITALS: BP 140/66; TEMP 98
[2018-03-28 18:17] VITALS: O2SAT 95
== END 2018-03-24 19:50 | disposition home or self-care (01) ==
LOC: PH3 10:10 → PHED 10:10 → PHEDA 10:10 → PH3 14:27
PROVIDERS: ADMIT Family Medicine; ATTEND Family Medicine
DX: G47.33 Obstructive sleep apnea (adult) (pediatric); Z95.1 Presence of aortocoronary bypass graft; Z79.01 Long term (current) use of anticoagulants; I11.0 Hypertensive heart disease with heart failure; I25.10 Atherosclerotic heart disease of native coronary artery without angina pectoris; E78.5 Hyperlipidemia, unspecified; E78.00 Pure hypercholesterolemia, unspecified; Z77.22 Contact with and (suspected) exposure to environmental tobacco smoke (acute) (chronic); I48.0 Paroxysmal atrial fibrillation; Z79.82 Long term (current) use of aspirin; I50.9 Heart failure, unspecified